=== PATIENT | male | born 1950 ===

== ENCOUNTER 2016-06-05 08:39 | Outpatient (RCR) | payer OTHER ==
--- NOTE | 2016-06-06 00:47 | Consultation ---
DATE OF CONSULTATION: 06/05/2016 HYPERBARIC OXYGEN CONSULTATION REASON FOR EVALUATION: Hyperbaric oxygen therapy. HISTORY OF PRESENT ILLNESS: The patient is a very pleasant 65-year-old male with a history of squamous cell carcinoma of the head and neck in 1998. The patient is status post radical neck dissection and radiation therapy. Subsequently, mostly recently, the patient had developed a jaw infection requiring multiple antibiotics by mouth over the past several weeks. The patient unfortunately has had lack of improvement and he is at risk of loosing his teeth and now referred for hyperbaric oxygen evaluation. PAST MEDICAL HISTORY: As above. PAST SURGICAL HISTORY: As above. MEDICATIONS: Notable for Bactrim and Augmentin as well as Propecia. ALLERGIES: None noted. SOCIAL HISTORY: Nonsmoker and nondrinker. The patient is otherwise independent. REVIEW OF SYSTEMS: Otherwise negative. PHYSICAL EXAMINATION: GENERAL: A well-developed male, fully alert and oriented. VITAL SIGNS: Blood pressure 139/77, afebrile, 72, 14. HEENT: Fairly negative. The patient's prior radical dissection noted. The patient's oropharynx is otherwise clear. The nasopharynx is clear. Tympanic membranes are clear. LUNGS: Clear. No rhonchi or wheezes. CARDIAC: S1 and S2. Regular rate and rhythm. ABDOMEN: Soft, nontender. EXTREMITIES: No edema. IMPRESSION: Delayed effects of radiation therapy. RECOMMENDATIONS: The patient appears to be an appropriate candidate for hyperbaric oxygen therapy. We will begin with 40 treatments at two atmospheres at 90 minute interval with close followup and evaluation at that time. Case was discussed and reviewed with the patient and the patient is agreeable to proceed. Aries Oliver M.D. DR: [place] JOB#: [id number] CC: [id number]
== END 2016-06-15 | disposition home or self-care (01) ==
LOC: WCC 08:39
DX: L59.8 Other specified disorders of the skin and subcutaneous tissue related to radiation (principal); Z85.9 Personal history of malignant neoplasm, unspecified
CPT/HCPCS: G0277; G0463; 99204

== ENCOUNTER 2016-06-30 13:00 | Outpatient (RCR) | payer OTHER | END 2016-07-16 | disposition home or self-care (01) | LOC: WCC 13:00 | DX: L59.8 Other specified disorders of the skin and subcutaneous tissue related to radiation (principal); Z85.89 Personal history of malignant neoplasm of other organs and systems | CPT/HCPCS: G0277 ×12 ==

== ENCOUNTER 2016-07-17 13:00 | Outpatient (RCR) | payer OTHER ==
--- NOTE | 2016-07-31 22:00 | Progress Note ---
HYPERBARIC OXYGEN FOLLOWUP EVALUATION SUBJECTIVE: The patient is seen and evaluated. The patient overall appears to be stable. 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 Apparently, we recommended the patient can complete 40 treatments of hyperbaric oxygen therapy and thereafter followup with his primary care physician. The patient care discussed with the patient. The patient is amendable and agreeable to the plan. IMPRESSION: Soft tissue radionecrosis, delayed radiation injury. Aries Oliver M.D. DR: TERRI JOB#: [id number] CC:
== END 2016-08-15 | disposition home or self-care (01) ==
LOC: WCC 13:00
DX: L59.8 Other specified disorders of the skin and subcutaneous tissue related to radiation (principal); Z85.89 Personal history of malignant neoplasm of other organs and systems
CPT/HCPCS: G0277 ×22

== ENCOUNTER 2016-08-16 17:30 | Outpatient (RCR) | payer OTHER | END 2016-09-15 | disposition home or self-care (01) | LOC: WCC 17:30 | DX: L59.8 Other specified disorders of the skin and subcutaneous tissue related to radiation (principal); Z85.89 Personal history of malignant neoplasm of other organs and systems | CPT/HCPCS: G0277 ×8 ==

== ENCOUNTER 2016-09-16 13:00 | Outpatient (RCR) | payer MEDICARE | END 2016-10-16 | disposition home or self-care (01) | LOC: WCC 13:00 | DX: L59.8 Other specified disorders of the skin and subcutaneous tissue related to radiation (principal); Z77.123 Contact with and (suspected) exposure to radon and other naturally occurring radiation; Z85.9 Personal history of malignant neoplasm, unspecified | CPT/HCPCS: G0277 ×14 ==